=== PATIENT | male | born 1985 | race Caucasian/White ===

== ENCOUNTER 2016-11-17 21:56 | Emergency (ER) | payer OTHER ==
[2016-11-18] MEDS ORDERED: HYDROCODONE/ACETAMINOPHEN 5/325MG TABLET ONE (01:08)
--- NOTE | 2016-11-18 08:09 | RAD ---
KNEE- RIGHT 4 OR MORE VIEWS HISTORY: Medial knee pain. COMPARISONS: None. FINDINGS: 4 views of the right knee were performed demonstrating grossly intact osseous structures. The knee joint spaces are relatively well-maintained. No lytic or blastic lesions are seen. There is evidence suggesting a suprapatellar joint effusion. There is linear lucency suggested within the proximal tibia and possibly the distal femur which may reflect residua of prior ACL reconstruction. IMPRESSION: 1. A knee joint effusion. 2. Subtle lucency within the proximal tibia and possibly the distal femur which may reflect changes from prior ACL reconstruction.
== END 2016-11-18 01:26 | disposition home or self-care (01) ==
LOC: ED 21:56
DX: S83.411A Sprain of medial collateral ligament of right knee, initial encounter (principal); X50.0XXA Overexertion from strenuous movement or load, initial encounter; Y93.66 Activity, soccer; Y92.39 Other specified sports and athletic area as the place of occurrence of the external cause
CPT/HCPCS: 73564; 99284; 99283; A9270